=== PATIENT | female | born 1980 | race Caucasian/White ===

== ENCOUNTER 2017-11-24 16:47 | Observation (INO) | payer OTHER ==
[2017-11-24 16:59] VITALS: BMI 28.3
--- NOTE | 2017-11-24 17:07 | ED PDOC ---
Arrival/HPI - General Chief Complaint: Back Pain Time Seen by Provider: 11/24/17 17:03 Historian: Patient - History of Present Illness Narrative History of Present Illness (Text): 37 F with h/o familial PCKD, being followed by Dr. Gutierrez (pt's information technology technician) come in today for evaluation of left flank pain gradually developed for past 2 weeks. Pt reports, pain is mostly over left flank area with intermittent radiation to Left upper abdomen. Pt denies fever, chills, recent illness, headache, dizziness, CP, SOB, dyspnea, palpitation, N/V/D, UTi sx, hematuria, vaginal irritation or discharges. Ambulate to Ed for evaluation, not in any apparent distress. Past Medical History - Provider Review Nursing Documentation Reviewed: Yes - Travel History Have you recently traveled outside [place] w/in the past 3 mons?: No - Infectious Disease Hx of Infectious Diseases: None - Tetanus Immunization Tetanus Immunization: Unknown - Cardiac Hx Cardiac Disorders: Yes Hx Hypertension: Yes - Pulmonary Hx Respiratory Disorders: No - Neurological Hx Neurological Disorder: No - HEENT Hx HEENT Disorder: No - Renal Hx Renal Disorder: Yes (Polycystic kidney disease) - Endocrine/Metabolic Hx Endocrine Disorders: No - Hematological/Oncological Hx Blood Disorders: Yes Hx Sickle Cell Disease: Yes - Integumentary Hx Dermatological Disorder: No - Musculoskeletal/Rheumatological Hx Musculoskeletal Disorders: No - Gastrointestinal Hx Gastrointestinal Disorders: Yes Other/Comment: Chronic constipation - Genitourinary/Gynecological Hx Genitourinary Disorders: Yes Other/Comment: h/o Ovarian cyst - Psychiatric Hx Psychophysiologic Disorder: No Hx Substance Use: No - Past Surgical History Past Surgical History: No Previous - Surgical History Other/Comment: ovarian cyst - Anesthesia Hx Anesthesia: Yes Hx Anesthesia Reactions: No Hx Malignant Hyperthermia: No - Suicidal Assessment Feels Threatened In Home Enviroment: No Family/Social History - Physician Review Nursing Documentation Reviewed: Yes Family/Social History: No Known Family HX Smoking Status: Former Smoker Hx Alcohol Use: Yes Hx Substance Use: No Allergies/Home Meds Allergies/Adverse Reactions: Allergies No Known Allergies Allergy (Verified 11/24/17 16:58) Home Medications: Home Meds Medication Instructions Recorded Confirmed Unknown Bp Med 04/01/14 04/01/14 Review of Systems - Review of Systems Constitutional: Normal. absent: Fatigue, Fevers Eyes: Normal ENT: Normal Respiratory: Normal. absent: SOB, Cough Cardiovascular: Normal. absent: Chest Pain, Palpitations Gastrointestinal: Abdominal Pain. absent: Nausea, Vomiting Genitourinary Female: Normal. absent: Dysuria, Frequency, Hematuria, Vaginal Bleeding, Vaginal Discharge Musculoskeletal: Back Pain Skin: Normal Neurological: Normal Endocrine: Normal Hemo/Lymphatic: Normal Psychiatric: Normal Physical Exam Vital Signs Temp Pulse Resp BP Pulse Ox 11/24/17 19:06 98.6 F 66 18 147/84 100 11/24/17 16:58 98.7 F 86 18 135/89 95 Temperature: Afebrile Blood Pressure: Normal Pulse: Regular Respiratory Rate: Normal Appearance: Positive for: Well-Appearing, Non-Toxic, Comfortable Pain Distress: Moderate Mental Status: Positive for: Alert and Oriented X 3 - Systems Exam Conjunctiva: Present: Normal Mouth: Present: Moist Mucous Membranes, Normal Lips. No: Drooling Pharnyx: No: ERYTHEMA, TONSILS ENLARGED Neck: Present: Normal Range of Motion, Trachea Midline. No: JVD, Bruit Respiratory/Chest: Present: Clear to Auscultation, Good Air Exchange. No: Respiratory Distress, Accessory Muscle Use Cardiovascular: Present: Regular Rate and Rhythm, Normal S1, S2. No: Murmurs Abdomen: Present: Tenderness (mild left upper). No: Distention, Peritoneal Signs, Rebound, Guarding Back: Present: Other (Left flank tenderness). No: CVA Tenderness, Midline Tenderness, Paraspinal Tenderness Upper Extremity: Present: Normal Inspection, Normal ROM, NORMAL PULSES. No: Edema, Deformity Lower Extremity: Present: Normal Inspection, NORMAL PULSES, Normal ROM. No: Edema, Deformity Neurological: Present: GCS=15, Speech Normal, Normal Sensory Function, Norm Deep Tendon Reflexes Skin: Present: Warm, Dry, Normal Color. No: Rashes Psychiatric: Present: Alert, Oriented x 3 Medical Decision Making ED Course and Treatment: 11/24/17 18:55 Pt was OBS in ED for 3 hours and reports no significant improvement, still c/o left flank pain. pain medication administered. Abd: benign, (-) guarding, (-) rebound Blood work review, abnormal with high Creatinine compare to previous visit UA (+) proteine. Case discussed with ( cover ) , hydration with NS, repeat blood work tomorrow recommend. Case discussed with ( pt reports asprimary) and admission arranged for OBS to reg. floor with Dx: ARF, PCKD. - Lab Interpretations Lab Results: 11/24/17 17:32 11/24/17 17:32 Lab Results 11/24/17 17:32: Sodium 144, Potassium 4.3, Chloride 110 H, Carbon Dioxide 23, Anion Gap 15, BUN 29 H, Creatinine 3.5 H, Est GFR ( Amer) 18, Est GFR ( Non-Af Amer) 15, Random Glucose 119 H, Calcium 8.8, Total Bilirubin 0.4, AST 23 , ALT 27, Alkaline Phosphatase 66, Total Protein 7.4, Albumin 3.8, Globulin 3.6 , Albumin/Globulin Ratio 1.0 L, Amylase 99, Lipase 99 11/24/17 17:32: Urine Color Yellow, Urine Appearance Slight-cloudy, Urine pH 6.0 , Ur Specific [place] 1.020, Urine Protein 100 H, Urine Glucose (UA) Negative, Urine Ketones Negative, Urine Blood Trace-intact H, Urine Nitrate Negative, Urine Bilirubin Negative, Urine Urobilinogen 0.2, Ur Leukocyte Esterase Negative , Urine RBC 0 - 2, Urine WBC Negative, Ur Epithelial Cells 0 - 2, Urine Bacteria Trace 11/24/17 17:32: PT 11.9, INR 1.04, APTT 31.3 11/24/17 17:32: WBC 7.9 D, RBC 3.36 L, Hgb 9.3 L, Hct 27.5 L, MCV 81.8, MCH 27.7, MCHC 33.8, RDW 14.7 H, Plt Count 377, MPV 8.1, Gran % 62.8, Lymph % (Auto ) 27.2, [place] % (Auto) 3.4, Eos % (Auto) 5.8 H, Baso % (Auto) 0.8, Gran # 4.98, Lymph # (Auto) 2.2, [place] # (Auto) 0.3, Eos # (Auto) 0.5, Baso # (Auto) 0.06 I have reviewed the lab results: Yes - RAD Interpretation Radiology Orders: 11/24/17 17:19 ABD & PELVIS W/O PO OR IV CONT [CT] Stat Accession No. : [id number] Patient Name / ID : BOLA WILD / [id number] Exam Date : 11/24/2017 17:55:23 ( Approved ) Study Comment : Sex / Age : F / 37Y Creator : Irvin Reynolds MD Dictator : Irvin Reynolds MD Silver Steward : Engineering Lab Technician : Irvin Reynolds MD Approver2 : Report Date : 11/24/2017 18:15:33 My Comment : Date of service: 11/24/2017 PROCEDURE: CT Abdomen and Pelvis without intravenous contrast HISTORY: Left flank pain COMPARISON: 04/02/2014 CT abdomen and pelvis. TECHNIQUE: Unenhanced study. Neither oral nor intravenous contrast administered. Radiation dose: Total exam DLP = 92.69 mGy-cm. This CT exam was performed using one or more of the following dose reduction techniques: Automated exposure control, adjustment of the mA and/or kV according to patient size, and/or use of iterative reconstruction technique. FINDINGS: LOWER THORAX: Unremarkable. LIVER: Innumerable hepatic cysts similar findings identified on the prior CT scan. GALLBLADDER AND BILE DUCTS: Unremarkable. PANCREAS: Unremarkable. No gross lesion or ductal dilatation. SPLEEN: Unremarkable. ADRENALS: Unremarkable. No mass. KIDNEYS AND URETERS: Evidence of polycystic kidney disease similar to that seen previously. They are both simple cysts and hyperdense cysts approximately stable compared to the previous examination. VASCULATURE: Unremarkable. No aortic aneurysm. BOWEL: Unremarkable. No obstruction. No gross mural thickening. APPENDIX: Unremarkable. Normal appendix. PERITONEUM: Unremarkable. No free fluid. No free air. LYMPH NODES: Unremarkable. No enlarged lymph nodes. BLADDER: Unremarkable. REPRODUCTIVE: Unremarkable. BONES: No acute fracture. OTHER FINDINGS: None. IMPRESSION: Stable findings of polycystic kidney disease. Stable cysts within the liver. No acute findings related to/accounting for the clinical presentation. - Medication Orders Current Medication Orders: Sodium Chloride (Sodium Chloride 0.9%) 1,000 mls @ 999 mls/hr IV .Q1H1M STA Stop: 11/24/17 20:15 Last Admin: 11/24/17 19:19 Dose: 999 mls/hr eMAR Start Stop Document 11/24/17 19:19 AD (Rec: 11/24/17 19:19 AD [id number]) Intravenous Solution Start Date 11/24/17 Start Time 19:19 Discontinued Medications Sodium Chloride (Sodium Chloride 0.9%) 1,000 mls @ 999 mls/hr IV .Q1H1M STA Stop: 11/24/17 18:20 Last Admin: 11/24/17 17:39 Dose: 999 mls/hr eMAR Start Stop Document 11/24/17 17:39 OCS (Rec: 11/24/17 17:39 OCS [id number]) Intravenous Solution Start Date 11/24/17 Start Time 17:39 End Date 11/24/17 End time 18:40 Total Infusion Time 61 Ketorolac Tromethamine (Toradol) 30 mg IVP STAT STA Stop: 11/24/17 17:21 Last Admin: 11/24/17 17:38 Dose: 30 mg MAR Pain Assessment Document 11/24/17 17:38 OCS (Rec: 11/24/17 17:38 OCS [id number]) Pain Reassessment Is this a pain reassessment? Yes Sleep Is patient sleeping during reassessment? No Presence of Pain Presence of Pain Yes Pain Scale Used Pain Scale Used Numeric Location Left, Right or Bilateral Left Upper or Lower Lower Pain Location Body Site Back Description Description Constant Intensity of Pain at present 8 Pain Behavior Irritability Facial Grimacing Aggravating Factors ADL's Changing Position IVP Administration Document 11/24/17 17:38 OCS (Rec: 11/24/17 17:38 OCS [id number]) Charges for Administration # of IVP Administrations 1 Morphine Sulfate (Morphine) 4 mg IVP STAT STA Stop: 11/24/17 18:59 Last Admin: 11/24/17 19:19 Dose: 4 mg MAR Pain Assessment Document 11/24/17 19:19 AD (Rec: 11/24/17 19:19 AD [id number]) Pain Reassessment Is this a pain reassessment? No Presence of Pain Presence of Pain Yes Pain Scale Used Pain Scale Used Numeric Location Left, Right or Bilateral Left Description Intensity of Pain at present 8 IVP Administration Document 11/24/17 19:19 AD (Rec: 11/24/17 19:19 AD [id number]) Charges for Administration # of IVP Administrations 1 Disposition/Present on Arrival - Present on Arrival Any Indicators Present on Arrival: No History of DVT/PE: No History of Uncontrolled Diabetes: No Urinary Catheter: No History of Decub. Ulcer: No History Surgical Site Infection Following: None - Disposition Have Diagnosis and Disposition been Completed?: Yes Diagnosis: Polycystic kidney disease, Flank pain, Acute renal failure Disposition: HOSPITALIZED Disposition Time: 18:55 Patient Plan: Admission Patient Problems: Current Active Problems Problem Status Onset Flank pain Acute Polycystic kidney disease Acute Condition: STABLE Forms: [facility] ([place]ian)
[2017-11-24] MEDS ORDERED: Sodium Chloride 0.9% 1,000 ML IV STA ×2 (17:20→19:15)
[2017-11-24 17:57] LABS: BASO # 0.06 K/mm3 (0.0-2.0); BASO % 0.8 % (0.0-3.0); EOS # 0.5 (0.0-0.7); EOS % 5.8 % (1.5-5.0); GRAN # 4.98 (1.4-6.5); GRAN % 62.8 % (50.0-68.0); HEMOGLOBIN 9.3 g/dL (12.0-16.0); LYMPH # 2.2 (1.2-3.4); LYMPH % 27.2 % (22.0-35.0); MEAN CELL VOLUME 81.8 fl (80.0-105.0); MEAN CORPUSCULAR HEMOGLOBIN 27.7 pg (25.0-35.0); MEAN CORPUSCULAR HGB CONC 33.8 g/dl (31.0-37.0); MEAN PLATELET VOLUME 8.1 fl (7.0-11.0); MONO # 0.3 (0.1-0.6); MONO % 3.4 % (1.0-6.0); RBC 3.36 10^6/uL (3.5-6.1); RED CELL DISTRIBUTION WIDTH 14.7 % (11.5-14.5); WHITE BLOOD COUNT 7.9 10^3/ul (4.5-11.0)
[2017-11-24 17:59] LABS: URINE BILIRUBIN NEGATIVE (NEGATIVE); URINE BLOOD TRACE-INTACT (NEGATIVE); URINE GLUCOSE (UA) NEGATIVE (NEGATIVE); URINE LEUKOCYTE ESTERASE NEGATIVE Leu/uL (NEGATIVE); URINE PROTEIN 100 mg/dL (<30 mg/dL); URINE UROBILINOGEN 0.2 E.U./dL (<1 E.U./dL)
[2017-11-24 18:00] LABS: ALBUMIN 3.8 g/dL (3.0-4.8); CALCIUM 8.8 mg/dL (8.4-10.5); URINE APPEARANCE SLIGHT-CLOUDY (CLEAR); URINE COLOR YELLOW (YELLOW)
[2017-11-24 18:08] LABS: INR 1.04; PARTIAL THROMBOPLASTIN TIME 31.3 Seconds (25.1-36.5); PROTHROMBIN TIME 11.9 SECONDS (9.4-12.5)
[2017-11-24 18:10] LABS: URINE BACTERIA TRACE (NEG); URINE EPITHELIAL CELLS 0 - 2 /hpf (0-5); URINE RBC 0 - 2 /hpf (0-2); URINE WBC NEGATIVE /hpf (0-6)
--- NOTE | 2017-11-24 18:17 | CT ---
Date of service: 11/24/2017 PROCEDURE: CT Abdomen and Pelvis without intravenous contrast HISTORY: Left flank pain COMPARISON: 04/02/2014 CT abdomen and pelvis. TECHNIQUE: Unenhanced study. Neither oral nor intravenous contrast administered. Radiation dose: Total exam DLP = 92.69 mGy-cm. This CT exam was performed using one or more of the following dose reduction techniques: Automated exposure control, adjustment of the mA and/or kV according to patient size, and/or use of iterative reconstruction technique. FINDINGS: LOWER THORAX: Unremarkable. LIVER: Innumerable hepatic cysts similar findings identified on the prior CT scan. GALLBLADDER AND BILE DUCTS: Unremarkable. PANCREAS: Unremarkable. No gross lesion or ductal dilatation. SPLEEN: Unremarkable. ADRENALS: Unremarkable. No mass. KIDNEYS AND URETERS: Evidence of polycystic kidney disease similar to that seen previously. They are both simple cysts and hyperdense cysts approximately stable compared to the previous examination. VASCULATURE: Unremarkable. No aortic aneurysm. BOWEL: Unremarkable. No obstruction. No gross mural thickening. APPENDIX: Unremarkable. Normal appendix. PERITONEUM: Unremarkable. No free fluid. No free air. LYMPH NODES: Unremarkable. No enlarged lymph nodes. BLADDER: Unremarkable. REPRODUCTIVE: Unremarkable. BONES: No acute fracture. OTHER FINDINGS: None. IMPRESSION: Stable findings of polycystic kidney disease. Stable cysts within the liver. No acute findings related to/accounting for the clinical presentation.
[2017-11-24] MEDS ORDERED: Morphine 4 mg/ml ISec IVP STA (18:58)
[2017-11-24] MEDS ORDERED: Morphine 2 mg/ml ISec IVP PRN (22:13)
[2017-11-24] MEDS ORDERED: Dextrose 5%/0.45% NS 1,000 ML IV SCH ×2 (22:15→22:27)
[2017-11-24] MEDS: Morphine 4 mg/ml ISec IVP PRN (22:39)
[2017-11-24 23:33] LABS: IRON 45 ug/dL (45-180)
[2017-11-24 23:43] LABS: % IRON SATURATION 19 % (20-55); TOTAL IRON BINDING CAPACITY 243 ug/dL (265-497)
--- NOTE | 2017-11-25 04:11 | HP ---
Copied To: Fermin Root MD Attending MD: Fermin Root MD HISTORY OF PRESENT ILLNESS: The patient is 37 years old, who came to emergency room with left flank pain. It is going on for almost 2 week. Intermittently got worse today, she could not take anymore. She came to the ER for further evaluation. The patient is a known case of polycystic kidney disease and is under care of Dr. Gutierrez and follows with him intermittently. Denies any hematuria. Denies any burning micturition. No history of fever or chills. No nausea or vomiting. PAST MEDICAL HISTORY: Significant for, 1. Hypertension. 2. History of sickle cell disease. 3. Chronic constipation. 4. History of ovarian cysts. FAMILY HISTORY: Significant for polycystic disease in the family. ALLERGIES: SHE IS NOT ALLERGIC TO ANY MEDICATION. MEDICATIONS AT HOME: She is on some blood pressure medications. SOCIAL HISTORY: Used to be a smoker in the past. Socially drinks. No drug abuse. PHYSICAL EXAMINATION: GENERAL: Awake, alert, oriented, complained of left flank pain. VITAL SIGNS: She is afebrile, pulse 60, respirations 20, blood pressure 155/95. LUNGS: Bilateral good airflow. No rhonchi or crackle. HEART: S1 and S2 audible. ABDOMEN: Soft. Has angle discomfort and left upper quadrant discomfort. NEUROLOGICAL: She is awake, alert, oriented, communicative. LABORATORY EXAM: WBC is 7.9, hemoglobin 9.3, hematocrit 27.5, platelets 375. PT 7.9, INR 1.04. Chemistry: Sodium 144, potassium 4.3, chloride 110, CO2 of 23, BUN 29, creatinine 3.5, blood sugar of 119. LFTs are within normal limit. Urinalysis shows trace blood and positive protein. Had CT scan of the abdomen and pelvis done that shows polycystic kidney disease and in the liver. ASSESSMENT: 1. Left flank pain. Rule out pyelonephritis. 2. Chronic kidney disease. 3. Polycystic disease. 4. Hypertension. PLAN: We will hydrate the patient. Analgesic as needed. We will start her on amlodipine. Follow up her electrolytes, CBC, CMP in the a.m. Urinalysis does not show positive leuko or nitrites, so we will hold off antibiotic for now. Dr. Pretty has been consulted for Nephrology opinion. We will follow up CBC CMP in the a.m. Fermin Root MD
[2017-11-25 07:07] LABS: HEMOGLOBIN 8.7 g/dL (12.0-16.0); RBC 3.19 10^6/uL (3.5-6.1); WHITE BLOOD COUNT 5.2 10^3/ul (4.5-11.0)
[2017-11-25 07:08] LABS: BASO # 0.04 K/mm3 (0.0-2.0); BASO % 0.8 % (0.0-3.0); EOS # 0.3 (0.0-0.7); EOS % 6.4 % (1.5-5.0); GRAN # 2.51 (1.4-6.5); GRAN % 48.6 % (50.0-68.0); LYMPH % 39.5 % (22.0-35.0); MEAN CELL VOLUME 83.1 fl (80.0-105.0); MEAN CORPUSCULAR HEMOGLOBIN 27.3 pg (25.0-35.0); MEAN CORPUSCULAR HGB CONC 32.8 g/dl (31.0-37.0); MEAN PLATELET VOLUME 8.1 fl (7.0-11.0); MONO # 0.2 (0.1-0.6); MONO % 4.7 % (1.0-6.0); RED CELL DISTRIBUTION WIDTH 14.7 % (11.5-14.5)
[2017-11-25 07:27] LABS: ALBUMIN 3.2 g/dL (3.0-4.8); CALCIUM 8.3 mg/dL (8.4-10.5)
[2017-11-25] MEDS: Morphine 4 mg/ml ISec IVP PRN (08:12)
[2017-11-25] MEDS ORDERED: Darbepoetin Alfa 60 mcg/ml Inj SC ONE (10:11)
[2017-11-25] MEDS ORDERED: Morphine 4 mg/ml ISec IVP PRN (11:09)
[2017-11-25 11:30] LABS: FERRITIN 23.9 ng/mL
--- NOTE | 2017-11-25 12:32 | CON ---
Copied To: Bebeto Pretty MD Attending MD: Bebeto Pretty MD DATE: 11/25/2017 LOCATION: [facility]. NEPHROLOGY CONSULTATION HISTORY OF PRESENT ILLNESS: The patient is a 37-year-old female with past medical history of hypertension, CKD stage 3/4 secondary to ADPKD, sickle cell trait. Presented to ED with left low back pain. Nephrology being consulted for advanced renal insufficiency. The patient reports that her symptoms began about 2-3 weeks ago; however, suddenly got worse within the past few days. She reports associated numbness in left upper leg, but denies any radiating pain to leg. Pain does travel around to her left lower abdomen. Denies any dysuria. Denies any fevers or chills. PAST MEDICAL HISTORY: As above. FAMILY HISTORY: Father and grandfather with polycystic kidney disease. Father currently on dialysis. Denies any family history of sudden or intracranial hemorrhage; SOCIAL HISTORY: Previous smoker. REVIEW OF SYSTEMS: CONSTITUTIONAL: Appetite has been well. Reports gaining weight lately. HEENT: Stable vision. No difficulty swallowing. RESPIRATORY: Reports recently being diagnosed with asthma. Reports dyspnea on walking two to three blocks. CARDIOVASCULAR: Denies chest pain or palpitations. Does get intermittent leg swelling. GI: Denies nausea, vomiting, diarrhea. : As per HPI. PSYCHIATRIC: Denies any depression or anxiety. NEURO: With numbness of left leg. VITAL SIGNS: This morning, blood pressure 129/81, heart rate 67, respirations 20, temperature 97.7, O2 sat 99% on room air. PHYSICAL EXAMINATION: GENERAL: No distress. Conversing coherently in full sentences. HEENT: Moist mucous membranes. Nonicteric. RESPIRATORY: Lungs are clear to auscultation bilaterally. No rales. No rhonchi. No wheezes. CARDIOVASCULAR: Heart sounds S1 and S2 normal. No murmurs. No gallops. No rubs. GI: Abdomen soft, nontender, nondistended. : No bladder distention. No CVA tenderness. MUSCULOSKELETAL: Has left low back tenderness to palpation. NEURO: No obvious tremor. SKIN: Warm. No cyanosis. PSYCHIATRIC: Normal mood. Normal affect. LABORATORY DATA: CBC: WBC 5.2, hemoglobin 8.7, hematocrit 26.5, platelets 340. Chemistry panel: Sodium 145, potassium 4.4, chloride 111, bicarb 24, BUN 26, creatinine 3.5, glucose 96, calcium 8.3, AST 21, ALT 19, albumin 3.2. Iron studies: Iron 45, TIBC 243, percent saturation 19, ferritin pending. Urine studies: UA, protein 100 mg/dL, trace blood, no leukocyte esterase, no wbc's, trace bacteria. Abdominal CT showing typical polycystic kidneys, also with some hyperdense cysts, possible calculus on left. ASSESSMENT AND PLAN: 1. Chronic kidney disease stage 4. The patient with worsening renal function lately. Reports serum creatinine had been in the 2s for about 2 years, but on last visit to medical office technician, serum creatinine had jumped to 4 back in 09/2017. The patient currently with serum creatinine of 3.5 correlating with EGFR of 15. No overt uremic signs or symptoms. Mild volume excess on exam. Stable electrolyte status. A. No indication for renal replacement therapy at this time. The patient should discuss her options with outpatient medical office technician especially regarding preemptive transplant. B. Should avoid all nephrotoxic agents (especially nonsteroidal antiinflammatory drugs). C. Should continue to drink profuse amounts of water as this may help slow progression of kidney cysts size. D. The patient should continue lisinopril as this is a mainstay of treatment for autosomal dominant polycystic kidney disease as long as it is being monitored closely by her outpatient medical office technician who had placed her on the medication. 2. Hypertensive chronic kidney disease. Blood pressure has been variable during this admission, possibly due to being in pain. The patient was on amlodipine 5 mg and lisinopril 20 mg daily along with diuretics. Continue amlodipine and lisinopril. We will hold hydrochlorothiazide. We will continue Lasix at lower dose 20 mg daily. 3. Anemia of chronic kidney disease, also with component of iron deficiency. The patient was to be started on iron infusions as outpatient. We will give her daily IV iron 100 mg as long as she stays here. We will give dose of Aranesp 60 mcg x1. 4. Chronic kidney disease mineral bone disorder. 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 We will check PTH level and phosphorus level. 5. Low back pain, appears to be musculoskeletal rather than being caused by polycystic kidneys; however, sometimes large cyst can impinge on adjacent muscle causing pain. May need MRI to better delineate. Otherwise, recommend conservative measures. Thank you for this referral. We will be following up closely. Bebeto Pretty MD
--- NOTE | 2017-11-25 12:39 | PN ---
Copied To: Fermin Root MD Attending MD: Fermin Root MD DATE: 11/25/2017 SUBJECTIVE: The patient is 37 years old, seen and examined. Still has left flank pian. Just got dose of morphine. No hematuria. No burning micturition. No nausea or vomiting. PHYSICAL EXAMINATION: VITAL SIGNS: She is afebrile, pulse 67, respirations 20, blood pressure 127/84. LUNGS: Bilateral fair airflow. No rhonchi or crackle. ABDOMEN: Her left flank pain has dissipated because of narcotics given prior to the visit. NEUROLOGICAL: She is awake, alert, oriented, communicative. LABORATORY EXAM: WBC 5.2, hemoglobin 8.7, hematocrit 26.5, platelet 340. Chemistry: Sodium 145, potassium 4.4, chloride 111, CO2 of 24, BUN 26, creatinine 3.5, blood sugar of 96, TIBC 243, saturation is 19%. Urinalysis shows trace blood, 100 protein. ASSESSMENT: 1. Left flank pain, etiology unclear. 2. Polycystic kidney disease. 3. Ovarian cyst. 4. Hypertension. PLAN: We will switch to p.o. analgesic. She was given Aranesp, was given . We will continue on iron Norvasc. Give her Percocet. If that controlled her pain, we will make discharge plan once she is comfortable on p.o. medication. We will make discharge plan either tonight or tomorrow morning. Fermin Root MD
[2017-11-25] MEDS: Oxycodone/Acetaminophen 5/325 mg Tab PO PRN (20:45)
[2017-11-25] MEDS ORDERED: Albuterol 0.083% Inhal Sol (2.5 mg/3 mL) UD INH STA (23:58)
[2017-11-26 07:49] VITALS: BP 146/89; PULSE 91; RESP 20; TEMP 98.2; O2SAT 97
--- NOTE | 2017-11-26 09:15 | CP.PCM.PN ---
Subjective - Date & Time of Evaluation Date of Evaluation: 11/26/17 Time of Evaluation: 10:30 - Subjective Subjective: Goldy Caban- Internal Medicine Resident- Nephrology Progress Note on Behalf of Dr. Pretty Patient seen and examined at bedside. Resting comfortably in bed. No acute overnight events. Patient states low back pain has improved relative to baseline. Offers no new complaints at this time. Denies fever, chills, chest pain, shortness of breath, abdominal pain, nausea, vomiting, diarrhea, constipation, and urinary symptoms. 12-point review of systems negative except as indicated in the HPI Physical Examination: - Constitutional Appears: Well, Non-toxic, No Acute Distress - Head Exam Head Exam: atraumatic, normocephalic - ENT Exam ENT Exam: Mucous Membranes Moist, Normal Exam - Respiratory Exam Respiratory Exam: Clear to Auscultation Bilateral, NORMAL BREATHING PATTERN - Cardiovascular Exam Cardiovascular Exam: normal S1, normal S2 - GI/Abdominal Exam GI & Abdominal Exam: Normal Bowel Sounds, Soft - Neurological Exam Neurological exam: Alert, Oriented x3, responds to verbal stimuli, answers questions appropriately, and follows commands - Extremities Extremities Exam: no cyanosis and clubbing - Psychiatric Exam Psychiatric exam: Normal Affect, Normal Mood - Skin Skin Exam: warm, dry Assessment and Plan: Patient is a 37 year old female with a past medical history of hypertension, CKD Stage 4, APCKD, and sick cell trait who was admitted for evaluation and treatment of low back pain. Nephrology was consulted for management of acute renal insufficiency. Chronic Kidney Stage 4 - BUN/Creatinine reviewed, trended, and appreciated- BUN 26 (from 29, baseline ~ unknown), creatinine 3.5 (from 3.5, baseline ~ 2) - BUN/Creatinine ratio 26/3.5 = 7.43 - no overt signs/sxs of uremia - avoid nephro toxins - no need for renal replacement therapy Autosomal Dominant Polycystic Kidney Disease - recommend increase PO fluid intake to potentially slow progress of increased cyst size - continue lisinopril Anemia of Chronic Disease - continue iron sucrose supplementation Chronic Kidney Disease Mineral Bone Disorder - corrected calcium is 8.9 - PTH and phosphorous ordered and pending- can follow up in the outpatient setting Hypertension In Setting of CKD - BPs trended, reviewed, and appreciated- stable 140s/50s - continue amlodipine and lisinopril, hold HCTZ - will continue to monitor closely Low Back Pain - likely msk in nature - rule out cyst induced pain- scans reviewed with radiologist- likely MSK pain- recommend outpatient MRI study Thank you for the opportunity to participate in the care of this patient. Patient seen, case discussed with, and plan approved by attending physician, Dr. Pretty Objective - Vital Signs/Intake and Output Vital Signs (last 24 hours): Temp Pulse Resp BP Pulse Ox 98.2 F 91 H 20 146/89 97 11/26/17 06:00 11/26/17 06:00 11/26/17 06:00 11/26/17 06:00 11/26/17 06:00 Intake and Output: 11/26/17 11/26/17 06:59 18:59 Intake Total 1300 Balance 1300 - Medications Medications: Current Medications Amlodipine Besylate (Norvasc) 5 mg PO DAILY [facility] Last Admin: 11/25/17 10:57 Dose: 5 mg Iron Sucrose 100 mg/ Sodium (Chloride) 105 mls @ 210 mls/hr IVPB DAILY [facility] Stop: 11/28/17 10:16 Last Admin: 11/25/17 10:58 Dose: 210 mls/hr Lisinopril (Zestril) 20 mg PO DAILY [facility] Last Admin: 11/25/17 10:57 Dose: 20 mg Morphine Sulfate (Morphine) 4 mg IVP Q4H PRN PRN Reason: Pain, severe (8-10) Last Admin: 11/25/17 14:47 Dose: 4 mg Oxycodone/Acetaminophen (Percocet 5/325 Mg Tab) 1 tab PO Q6H PRN PRN Reason: Pain, moderate (4-7) Stop: 11/28/17 11:10 Last Admin: 11/25/17 20:45 Dose: 1 tab - Labs Labs: 11/25/17 06:30 11/25/17 06:30 PT 11.9 SECONDS (9.4-12.5) 11/24/17 17:32 INR 1.04 11/24/17 17:32 APTT 31.3 Seconds (25.1-36.5) 11/24/17 17:32
[2017-11-26 10:02] LABS: BASO # 0.03 K/mm3 (0.0-2.0); BASO % 0.5 % (0.0-3.0); EOS # 0.4 (0.0-0.7); EOS % 6.1 % (1.5-5.0); GRAN # 3.51 (1.4-6.5); GRAN % 55.2 % (50.0-68.0); HEMOGLOBIN 8.7 g/dL (12.0-16.0); LYMPH % 31.9 % (22.0-35.0); MEAN CELL VOLUME 82.3 fl (80.0-105.0); MEAN CORPUSCULAR HGB CONC 32.8 g/dl (31.0-37.0); MEAN PLATELET VOLUME 7.9 fl (7.0-11.0); MONO # 0.4 (0.1-0.6); MONO % 6.3 % (1.0-6.0); RBC 3.22 10^6/uL (3.5-6.1); RED CELL DISTRIBUTION WIDTH 14.7 % (11.5-14.5); WHITE BLOOD COUNT 6.4 10^3/ul (4.5-11.0)
[2017-11-26 10:46] LABS: ALBUMIN 3.1 g/dL (3.0-4.8); CALCIUM 8.8 mg/dL (8.4-10.5)
[2017-11-26] MEDS: Oxycodone/Acetaminophen 5/325 mg Tab PO PRN (11:19)
--- NOTE | 2017-11-27 02:06 | DS ---
Copied To: Fermin Root MD Attending MD: Fermin Root MD HISTORY OF PRESENT ILLNESS: Patient is 37 years old, seen and examined. Still has left flank pian. No hematuria. No urinary symptoms. Eating and tolerating. No nausea, vomiting, no diarrhea. PHYSICAL EXAMINATION: VITAL SIGNS: She is afebrile, pulse 91, respirations 20, blood pressure 146/89. LUNGS: Bilateral fair airflow. No rhonchi or crackle. HEART: S1, S2 audible. ABDOMEN: Soft, nontender. No rebound. No guarding. NEUROLOGICAL: Patient is awake, alert, oriented, communicative. LABORATORY DATA: WBC 6.4, hemoglobin 8.7, hematocrit 26.5, platelet 322. Chemistry: Sodium 142, potassium 4.8, chloride 110, CO2 of 23, BUN 26, creatinine 3.3, blood sugar 88. Blood cultures and urine cultures are negative. ASSESSMENT: 1. Left flank pain, probably musculoskeletal. No signs of urinary tract infection or hematuria. 2. History of polycystic disease. 3. Ovarian cyst. PLAN: Patient will be discharged home. No need of antibiotics. She will follow with her outside surg physician asst, Dr. Gutierrez. She is given prescription for analgesics. She is advised not to take NSAIDs. She will follow up in the office as needed. Fermin Root MD
== END 2017-11-26 15:39 | disposition home or self-care (01) ==
LOC: ED 16:47 → ERH 18:58 → 5RNO 21:33
PROVIDERS: ADMIT Internal Medicine; ATTEND Internal Medicine
DX: N17.9 Acute kidney failure, unspecified (principal); Q61.2 Polycystic kidney, adult type; D57.1 Sickle-cell disease without crisis; D63.1 Anemia in chronic kidney disease; I12.9 Hypertensive chronic kidney disease with stage 1 through stage 4 chronic kidney disease, or unspecified chronic kidney disease; M89.9 Disorder of bone, unspecified; N18.4 Chronic kidney disease, stage 4 (severe); N25.81 Secondary hyperparathyroidism of renal origin; N83.209 Unspecified ovarian cyst, unspecified side; Z79.899 Other long term (current) drug therapy; Z82.71 Family history of polycystic kidney; Z87.891 Personal history of nicotine dependence; M54.5 Low back pain
CPT/HCPCS: 36415; 74176; 80053; 81001; 82150; 82607; 82728; 83540; 83550; 83690; 85025; 85610; 85730; 87040; 87086; 94640; 96361; 96365; 96366; 96372; 96375; 96376; 99285; G0378; J0881; J1756; J1885; J2270; J7030; J7042